=== PATIENT | female | born 1970 | race African-American/Black ===

== ENCOUNTER 2017-05-17 13:53 | Emergency (ER) | payer MEDICAID, OTHER ==
[~2017-05-17] VITALS: Ht 160 cm; Wt 77.3 kg
[2017-05-17] MEDS ORDERED: PERCT10 PO (14:17)
[2017-05-17] MEDS ORDERED: MORP30PC9 PO (14:17)
[2017-05-17] MEDS ORDERED: GABA-531 PO (14:17)
[2017-05-17] MEDS ORDERED: ZOLP5 PO (14:17)
[2017-05-17 15:18] LABS: APPEARANCE,URINE CLOUDY (CLEAR); BILIRUBIN,URINE NEGATIVE (NEGATIVE); GLUCOSE, URINE (UA) NEGATIVE (NEGATIVE); KETONES,URINE NEGATIVE (NEGATIVE); LEUKOCYTE ESTERASE ,URINE NEGATIVE (NEGATIVE); NITRATE,URINE NEGATIVE (NEGATIVE); OCCULT BLOOD,URINE SMALL (NEGATIVE); PROTEIN,URINE NEGATIVE (NEGATIVE); UROBILINOGEN,URINE 0.2 mg/dL (<=1.0)
[2017-05-17 15:36] LABS: BACTERIA,URINE None Seen /HPF (None Seen); WBC,URINE 0-2 /HPF (0-5)
[2017-05-17 15:37] LABS: SQUAMOUS EPITHELIAL CELL,UR Many /LPF (None Seen)
[2017-05-17] MEDS ORDERED: SODIUM CHLORIDE 0.9% 1,000 ML IV ONE ×2 (19:45→20:00)
[2017-05-17] MEDS ORDERED: MORP30 PO (19:55)
[2017-05-17] MEDS ORDERED: KETOROLAC TROMETHAMINE 30 MG/ML VIAL IVP ONE (20:00)
[2017-05-17 20:03] LABS: BASOPHILS # (AUTO) 0.12 K/uL (0.00-0.20); BASOPHILS % (AUTO) 1.5 % (0.0-2.0); EOSINOPHILS # (AUTO) 0.12 K/uL (0.00-0.70); EOSINOPHILS % (AUTO) 1.49 % (1.0-6.0); HEMATOCRIT 41.2 % (36-46); HEMOGLOBIN 13.4 g/dL (12.0-16.0); LYMPHOCYTES # (AUTO) 2.5 K/uL (1.0-4.8); LYMPHOCYTES % (AUTO) 31.7 % (22.0-44.0); MEAN CORPUSCULAR HEMOGLOBIN 31.9 pg (26.0-34.0); MEAN CORPUSCULAR HGB CONC 32.7 G/dL (31.0-37.0); MEAN CORPUSCULAR VOLUME 98 fL (80-100); MONOCYTES # (AUTO) 0.5 K/uL (0.1-1.0); MONOCYTES % (AUTO) 6.6 % (2.0-9.0); NEUTROPHILS # (AUTO) 4.7 K/uL (1.8-7.7); NEUTROPHILS % (AUTO) 58.7 % (40.0-70.0); PLATELET COUNT (AUTO) 270 K/uL (150-450); RED BLOOD CELL COUNT(AUTO) 4.22 MIL/uL (4.00-5.20); RED CELL DISTRIBUTION WIDTH 14.7 % (11.5-14.5)
[2017-05-17 20:38] LABS: ANION GAP 6 mmol/L (8-16); CALCIUM, TOTAL 9.2 mg/dL (8.8-10.5); CARBON DIOXIDE 32 mmol/L (22-29); CHLORIDE 101 mmol/L (98-107); CREATININE 0.98 mg/dL (0.60-1.30); GLOMERULAR FILTR. RATE CALC > 60 mL/min (>60); GLUCOSE,RANDOM 96 mg/dL (70-110); POTASSIUM 3.7 mmol/L (3.5-5.1); SODIUM SERUM 139 mmol/L (136-145); UREA NITROGEN, BLOOD 14 mg/dL (7-18)
[2017-05-17 21:28] VITALS: BP 110/72
== END 2017-05-17 21:33 | disposition home or self-care (01) ==
LOC: EMS 13:57
DX: M54.6 Pain in thoracic spine (principal)
CPT/HCPCS: 36415; 71046; 80048; 81001; 85025; 96361; 96374; 99285; J1885; J7030

== ENCOUNTER 2020-01-02 20:28 | Emergency (ER) | payer OTHER ==
[~2020-01-02] VITALS: Ht 160 cm; Wt 104.5 kg
[~2020-01-02 20:28] MED LIST: GABA-1181 PO; MORP30 PO; OXYC-601 PO; ZOLP-280 PO
[2020-01-02] MEDS ORDERED: ALBU8.5H8 IH (20:41)
[2020-01-02] MEDS ORDERED: BECL10.6 IH (20:41)
[2020-01-02] MEDS ORDERED: KETOROLAC TROMETHAMINE 30 MG/ML VIAL IM ONE (23:15)
[2020-01-02 23:51] VITALS: BP 119/84
== END 2020-01-02 23:52 | disposition home or self-care (01) ==
LOC: EMS 20:28
DX: M65.311 Trigger thumb, right thumb (principal); Z79.899 Other long term (current) drug therapy
CPT/HCPCS: 96372; 99283; J1885

== ENCOUNTER 2020-10-29 16:07 | Emergency (ER) | payer OTHER ==
[~2020-10-29] VITALS: Ht 160 cm; Wt 100.0 kg
[~2020-10-29 16:07] MED LIST changes: +ALBU8.5H8 IH; +BECL10.6 IH
[2020-10-29] MEDS ORDERED: CALC-789 PO (16:22)
[2020-10-29] MEDS ORDERED: DULO-8 PO (16:22)
[2020-10-29] MEDS ORDERED: MULT-1203 PO (16:22)
[2020-10-29] MEDS ORDERED: MELA3TAB89 PO (16:22)
[2020-10-29] MEDS ORDERED: SIME80TA14 PO (16:22)
[2020-10-29] MEDS ORDERED: HYD50 PO (16:22)
[2020-10-29] MEDS ORDERED: CYCL10 PO (16:22)
[2020-10-29] MEDS ORDERED: KETOROLAC TROMETHAMINE 30 MG/ML VIAL IVP ONE (16:30)
[2020-10-29 17:00] LABS: BASOPHILS % (AUTO) 1.1 % (0.0-2.0); EOSINOPHILS % (AUTO) 1.6 % (1.0-6.0); HEMATOCRIT 40.7 % (36-46); HEMOGLOBIN 13.3 g/dL (12.0-16.0); LYMPHOCYTES # (AUTO) 3.4 K/uL (1.0-4.8); LYMPHOCYTES % (AUTO) 41.3 % (22.0-44.0); MEAN CORPUSCULAR HEMOGLOBIN 30.4 pg (26.0-34.0); MEAN CORPUSCULAR HGB CONC 32.7 G/dL (31.0-37.0); MEAN CORPUSCULAR VOLUME 93 fL (80-100); MONOCYTES # (AUTO) 0.5 K/uL (0.1-1.0); MONOCYTES % (AUTO) 6.2 % (2.0-9.0); NEUTROPHILS # (AUTO) 4.1 K/uL (1.8-7.7); NEUTROPHILS % (AUTO) 49.8 % (40.0-70.0); PLATELET COUNT (AUTO) 298 K/uL (150-450); RED BLOOD CELL COUNT(AUTO) 4.38 MIL/uL (4.00-5.20); RED CELL DISTRIBUTION WIDTH 14.6 % (11.5-14.5)
[2020-10-29 17:03] LABS: APPEARANCE,URINE CLEAR (CLEAR); BILIRUBIN,URINE NEGATIVE (NEGATIVE); GLUCOSE, URINE (UA) NEGATIVE (NEGATIVE); KETONES,URINE NEGATIVE (NEGATIVE); LEUKOCYTE ESTERASE ,URINE TRACE (NEGATIVE); NITRATE,URINE NEGATIVE (NEGATIVE); OCCULT BLOOD,URINE NEGATIVE (NEGATIVE); PROTEIN,URINE NEGATIVE (NEGATIVE); UROBILINOGEN,URINE 0.2 mg/dL (<=1.0)
[2020-10-29 17:05] LABS: BACTERIA,URINE Few /HPF (None Seen); RBC,URINE 0-2 /HPF (0-2); SQUAMOUS EPITHELIAL CELL,UR Few /LPF (None Seen)
[2020-10-29 17:09] LABS: AMPHET/METH SCREEN,URINE NEGATIVE (NEGATIVE); BARBITURATE SCREEN, URINE NEGATIVE (NEGATIVE); BENZODIAZEPINES SCREEN,URINE NEGATIVE (NEGATIVE); CANNABINOID SCREEN,URINE NEGATIVE (NEGATIVE); COCAINE SCREEN,URINE NEGATIVE (NEGATIVE); METHADONE SCREEN, URINE NEGATIVE (NEGATIVE); OPIATE SCREEN,URINE POSITIVE (NEGATIVE); PHENCYCLIDINE SCREEN,URINE NEGATIVE (NEGATIVE)
[2020-10-29 17:10] LABS: ANION GAP 9 mmol/L (8-16); CARBON DIOXIDE 27 mmol/L (22-29); CHLORIDE 102 mmol/L (98-107); CREATININE 1.12 mg/dL (0.60-1.30); GLOMERULAR FILTR. RATE CALC > 60 mL/min (>60); GLUCOSE,RANDOM 105 mg/dL (70-110); POTASSIUM 3.5 mmol/L (3.5-5.1); SODIUM SERUM 138 mmol/L (136-145); UREA NITROGEN, BLOOD 21 mg/dL (7-18)
[2020-10-29 17:22] LABS: ALANINE AMINOTRANSFERASE 34 U/L (12-78); ALBUMIN 3.5 g/dL (3.4-5.0); ALKALINE PHOSPHATASE 98 U/L (46-116); ASPARTATE AMINOTRANSFERASE 25 U/L (15-37); BILIRUBIN,TOTAL 0.8 mg/dL (0.1-1.0); HCG,QUANTITATIVE 1 mIU/mL (0-6); LIPASE 81 U/L (73-393); TOTAL PROTEIN, SERUM 7.3 g/dL (6.4-8.2)
[2020-10-29 19:08] VITALS: BP 112/67
== END 2020-10-29 19:40 | disposition home or self-care (01) ==
LOC: EMS 16:07
DX: G62.9 Polyneuropathy, unspecified (principal); J45.909 Unspecified asthma, uncomplicated; Z79.899 Other long term (current) drug therapy; R10.2 Pelvic and perineal pain
CPT/HCPCS: 36415; 71045; 74176; 80053; 80307; 81001; 83690; 84484; 84702; 85025; 93005; 96374; 99285; J1885

== ENCOUNTER 2020-12-31 12:53 | Inpatient (IN) | payer OTHER ==
[~2020-12-31] VITALS: Ht 160 cm; Wt 99.3 kg
[~2020-12-31 12:53] MED LIST changes: +ASPI-1444 PO; +ATOR40TA71 PO; +CALC-789 PO; +CARV12 PO; +CARV6 PO; +CYCL10 PO; +DULO60CA98 PO; +FURO40 PO; +HYD50 PO; +ISOS1TAB2 PO; +MELA3TAB89 PO; +MULT-1203 PO; +OXYC-490 PO; -OXYC-601 PO; +SIME80TA14 PO
[2020-12-31 13:28] LABS: BASOPHILS % (AUTO) 0.7 % (0.0-2.0); EOSINOPHILS % (AUTO) 0.9 % (1.0-6.0); HEMATOCRIT 38.3 % (36-46); HEMOGLOBIN 12.2 g/dL (12.0-16.0); LYMPHOCYTES # (AUTO) 2.2 K/uL (1.0-4.8); LYMPHOCYTES % (AUTO) 28.5 % (22.0-44.0); MEAN CORPUSCULAR HEMOGLOBIN 28.8 pg (26.0-34.0); MEAN CORPUSCULAR HGB CONC 31.8 G/dL (31.0-37.0); MEAN CORPUSCULAR VOLUME 91 fL (80-100); MONOCYTES # (AUTO) 0.4 K/uL (0.1-1.0); MONOCYTES % (AUTO) 5.5 % (2.0-9.0); NEUTROPHILS % (AUTO) 64.4 % (40.0-70.0); PLATELET COUNT (AUTO) 356 K/uL (150-450); RED BLOOD CELL COUNT(AUTO) 4.23 MIL/uL (4.00-5.20); RED CELL DISTRIBUTION WIDTH 15.4 % (11.5-14.5)
[2020-12-31 13:38] LABS: CALCIUM, TOTAL 8.6 mg/dL (8.8-10.5); CREATININE 1.24 mg/dL (0.60-1.30); POTASSIUM 3.9 mmol/L (3.5-5.1)
[2020-12-31 13:43] LABS: INR 1.2 (0.9-1.1); PROTHROMBIN TIME 12.9 SEC (9.4-11.6)
[2020-12-31 13:45] LABS: LACTIC ACID 1.9 mmol/L (0.4-2.0)
[2020-12-31] MEDS ORDERED: SODIUM CHLORIDE 0.9% 100 ML ONE (13:51)
[2020-12-31] MEDS ORDERED: IOHEXOL 350 MG/ML 100 ML VIAL ONE (13:51)
[2020-12-31 14:05] LABS: ALBUMIN 2.9 g/dL (3.4-5.0); MAGNESIUM 1.8 mg/dL (1.80-2.40); TOTAL PROTEIN, SERUM 7.4 g/dL (6.4-8.2)
[2020-12-31] MEDS ORDERED: HEPARIN SODIUM,PORCINE 5,000 UNITS/ML VIAL IVP ONE (15:15)
[2020-12-31] MEDS ORDERED: HEPARIN SODIUM,PORCINE 5,000 UNITS/ML VIAL IVP PRN ×2 (15:15)
[2020-12-31] MEDS ORDERED: HEPARIN SODIUM 25000 UNITS/D5W 250 ML IV PRN (15:15)
[2020-12-31 16:10] LABS: BASOPHILS % (AUTO) 0.8 % (0.0-2.0); EOSINOPHILS % (AUTO) 0.6 % (1.0-6.0); HEMATOCRIT 35.8 % (36-46); HEMOGLOBIN 11.4 g/dL (12.0-16.0); LYMPHOCYTES # (AUTO) 2.2 K/uL (1.0-4.8); LYMPHOCYTES % (AUTO) 29.5 % (22.0-44.0); MEAN CORPUSCULAR HEMOGLOBIN 28.9 pg (26.0-34.0); MEAN CORPUSCULAR HGB CONC 31.8 G/dL (31.0-37.0); MEAN CORPUSCULAR VOLUME 91 fL (80-100); MONOCYTES # (AUTO) 0.6 K/uL (0.1-1.0); MONOCYTES % (AUTO) 7.8 % (2.0-9.0); NEUTROPHILS # (AUTO) 4.5 K/uL (1.8-7.7); NEUTROPHILS % (AUTO) 61.3 % (40.0-70.0); PLATELET COUNT (AUTO) 331 K/uL (150-450); RED BLOOD CELL COUNT(AUTO) 3.94 MIL/uL (4.00-5.20); RED CELL DISTRIBUTION WIDTH 15.6 % (11.5-14.5)
[2020-12-31] MEDS ORDERED: ACETAMINOPHEN 325 MG TABLET PO PRN (16:15)
[2020-12-31] MEDS ORDERED: ALBUTEROL SULFATE 2.5 MG/0.5 ML NEB SOLUTION NEB PRN (16:15)
[2020-12-31 19:52] LABS: COVID AG,FIA SOURCE NASOPHARYNGEAL
[2020-12-31] MEDS: DOCUSATE SODIUM 100 MG CAPSULE PO SCH (19:59)
[2020-12-31] MEDS ORDERED: MORPHINE SULFATE 4 MG/ML SYRINGE IVP ONE (20:00)
[2020-12-31 21:55] VITALS: BP 108/75
[2021-01-01 00:18] VITALS: BP 101/71
[2021-01-01] MEDS: MORPHINE SULFATE 2 MG/ML SYRINGE IVP PRN ×2 (05:25→14:23)
[2021-01-01 05:30] VITALS: BP 127/84
[2021-01-01] MEDS ORDERED: HEPARIN SODIUM 25000 UNITS/D5W 250 ML IV PRN (05:45)
[2021-01-01] MEDS ORDERED: HEPARIN SODIUM,PORCINE 5,000 UNITS/ML VIAL IVP PRN ×2 (05:45)
[2021-01-01 07:15] LABS: BASOPHILS % (AUTO) 0.7 % (0.0-2.0); EOSINOPHILS % (AUTO) 1.3 % (1.0-6.0); HEMATOCRIT 38.1 % (36-46); HEMOGLOBIN 12.1 g/dL (12.0-16.0); LYMPHOCYTES # (AUTO) 3.2 K/uL (1.0-4.8); LYMPHOCYTES % (AUTO) 45.9 % (22.0-44.0); MEAN CORPUSCULAR HGB CONC 31.7 G/dL (31.0-37.0); MEAN CORPUSCULAR VOLUME 91 fL (80-100); MONOCYTES # (AUTO) 0.6 K/uL (0.1-1.0); MONOCYTES % (AUTO) 8.5 % (2.0-9.0); NEUTROPHILS # (AUTO) 3.1 K/uL (1.8-7.7); NEUTROPHILS % (AUTO) 43.6 % (40.0-70.0); PLATELET COUNT (AUTO) 337 K/uL (150-450); RED BLOOD CELL COUNT(AUTO) 4.16 MIL/uL (4.00-5.20); RED CELL DISTRIBUTION WIDTH 15.9 % (11.5-14.5)
[2021-01-01 07:30] VITALS: BP 93/71
[2021-01-01] MEDS: FAMOTIDINE 20 MG TABLET PO SCH (07:51)
[2021-01-01] MEDS: APIXABAN 5 MG TABLET PO SCH ×2 (07:51→20:29)
[2021-01-01] MEDS: DOCUSATE SODIUM 100 MG CAPSULE PO SCH ×2 (07:52→20:28)
[2021-01-01] MEDS ORDERED: FUROSEMIDE 40 MG/4 ML VIAL IVP SCH (09:00)
[2021-01-01 11:14] VITALS: BP 106/72
[2021-01-01 15:02] VITALS: BP 102/75
[2021-01-01 20:10] VITALS: BP 107/69
[2021-01-02 00:09] VITALS: BP 106/76
[2021-01-02 04:34] VITALS: BP 101/69
[2021-01-02] MEDS: MORPHINE SULFATE 2 MG/ML SYRINGE IVP PRN ×2 (08:01→21:53)
[2021-01-02] MEDS ORDERED: FUROSEMIDE 40 MG/4 ML VIAL IVP SCH (09:00)
[2021-01-02] MEDS ORDERED: CARVEDILOL 3.125 MG TABLET PO SCH (09:00)
[2021-01-02] MEDS: APIXABAN 5 MG TABLET PO SCH ×2 (09:05→20:25)
[2021-01-02] MEDS: FAMOTIDINE 20 MG TABLET PO SCH (09:06)
[2021-01-02] MEDS: FUROSEMIDE 40 MG/4 ML VIAL IVP SCH (09:06)
[2021-01-02] MEDS: DOCUSATE SODIUM 100 MG CAPSULE PO SCH ×2 (09:06→20:25)
[2021-01-02 09:07] VITALS: BP 108/72
[2021-01-02 11:47] VITALS: BP 95/68
[2021-01-02] MEDS: ALBUTEROL SULFATE 2.5 MG/0.5 ML NEB SOLUTION NEB SCH ×4 (11:55→23:37)
[2021-01-02] MEDS: IPRATROPIUM BROMIDE 0.5 MG/2.5 ML NEB SOLUTION NEB SCH ×4 (11:55→23:37)
[2021-01-02 15:40] LABS: ANION GAP 11 mmol/L (8-16); CALCIUM, TOTAL 9.1 mg/dL (8.8-10.5); CARBON DIOXIDE 24 mmol/L (22-29); CHLORIDE 101 mmol/L (98-107); CREATININE 1.03 mg/dL (0.60-1.30); GLOMERULAR FILTR. RATE CALC > 60 mL/min (>60); GLUCOSE,RANDOM 136 mg/dL (70-110); POTASSIUM 3.4 mmol/L (3.5-5.1); SODIUM SERUM 136 mmol/L (136-145); UREA NITROGEN, BLOOD 11 mg/dL (7-18)
[2021-01-02 15:46] VITALS: BP 101/73
[2021-01-02] MEDS ORDERED: POTASSIUM CHLORIDE 20 MEQ ER TABLET PO ONE (16:15)
[2021-01-02] MEDS: CARVEDILOL 3.125 MG TABLET PO SCH (20:25)
[2021-01-02 20:30] VITALS: BP 125/105
[2021-01-02] MEDS ORDERED: ONDANSETRON HCL 4 MG/2 ML VIAL IVP PRN (23:45)
[2021-01-03] MEDS: ALBUTEROL SULFATE 2.5 MG/0.5 ML NEB SOLUTION NEB SCH ×6 (03:00→23:00)
[2021-01-03] MEDS: IPRATROPIUM BROMIDE 0.5 MG/2.5 ML NEB SOLUTION NEB SCH ×6 (03:00→23:00)
[2021-01-03 05:08] VITALS: BP 105/52
[2021-01-03] MEDS: CARVEDILOL 3.125 MG TABLET PO SCH (08:49)
[2021-01-03] MEDS: FAMOTIDINE 20 MG TABLET PO SCH (08:49)
[2021-01-03] MEDS: APIXABAN 5 MG TABLET PO SCH ×2 (08:49→20:39)
[2021-01-03] MEDS: DOCUSATE SODIUM 100 MG CAPSULE PO SCH ×2 (08:49→20:39)
[2021-01-03] MEDS: FUROSEMIDE 40 MG/4 ML VIAL IVP SCH (09:00)
[2021-01-03 11:08] VITALS: BP 93/46
[2021-01-03] MEDS: HYDROCODONE/ACETAMINOPHEN 5-325 MG TABLET PO PRN ×2 (11:08→20:47)
[2021-01-03] MEDS: LORazepam 0.5 MG TABLET PO PRN (15:11)
[2021-01-03] MEDS: FUROSEMIDE 40 MG TABLET PO SCH (15:11)
[2021-01-03 15:45] VITALS: BP 107/81
[2021-01-03 20:30] VITALS: BP 152/93
[2021-01-03] MEDS: CARVEDILOL 12.5 MG TABLET PO SCH (20:39)
[2021-01-04] VITALS (7 sets, daily range): BP systolic 60–141; BP diastolic 24–105
[2021-01-04] MEDS: IPRATROPIUM BROMIDE 0.5 MG/2.5 ML NEB SOLUTION NEB SCH ×6 (03:00→23:00)
[2021-01-04] MEDS: ALBUTEROL SULFATE 2.5 MG/0.5 ML NEB SOLUTION NEB SCH ×6 (03:00→23:00)
[2021-01-04] MEDS: FUROSEMIDE 40 MG TABLET PO SCH (09:11)
[2021-01-04] MEDS: FAMOTIDINE 20 MG TABLET PO SCH (09:12)
[2021-01-04] MEDS: LORazepam 0.5 MG TABLET PO PRN (09:12)
[2021-01-04] MEDS: APIXABAN 5 MG TABLET PO SCH ×2 (09:12→19:49)
[2021-01-04] MEDS: DOCUSATE SODIUM 100 MG CAPSULE PO SCH ×3 (09:12→19:53)
[2021-01-04] MEDS: HYDROCODONE/ACETAMINOPHEN 5-325 MG TABLET PO PRN (11:59)
[2021-01-04] MEDS: CARVEDILOL 12.5 MG TABLET PO SCH ×2 (11:59→19:49)
[2021-01-05 00:11] VITALS: BP 101/73
[2021-01-05] MEDS: ALBUTEROL SULFATE 2.5 MG/0.5 ML NEB SOLUTION NEB SCH ×4 (03:00→15:36)
[2021-01-05] MEDS: IPRATROPIUM BROMIDE 0.5 MG/2.5 ML NEB SOLUTION NEB SCH ×4 (03:00→15:36)
[2021-01-05 04:52] VITALS: BP 90/57
[2021-01-05] MEDS: HYDROCODONE/ACETAMINOPHEN 5-325 MG TABLET PO PRN (05:56)
[2021-01-05 08:25] VITALS: BP 90/68
[2021-01-05] MEDS: DOCUSATE SODIUM 100 MG CAPSULE PO SCH (08:27)
[2021-01-05] MEDS: FAMOTIDINE 20 MG TABLET PO SCH (08:27)
[2021-01-05] MEDS: APIXABAN 5 MG TABLET PO SCH (08:27)
[2021-01-05] MEDS: CARVEDILOL 12.5 MG TABLET PO SCH (09:00)
[2021-01-05] MEDS: FUROSEMIDE 40 MG TABLET PO SCH (09:00)
[2021-01-05] MEDS ORDERED: APIX5TAB PO (11:02)
[2021-01-08] MEDS ORDERED: APIXABAN 5 MG TABLET PO SCH (09:00)
== END 2021-01-05 18:50 | disposition home or self-care (01) | DRG 134 ==
LOC: EMS 12:56 → 5S 20:00
PROVIDERS: ADMIT Internal Medicine; ATTEND Internal Medicine
DX: I26.99 Other pulmonary embolism without acute cor pulmonale (principal); J96.91 Respiratory failure, unspecified with hypoxia; I50.41 Acute combined systolic (congestive) and diastolic (congestive) heart failure; I42.8 Other cardiomyopathies; I11.0 Hypertensive heart disease with heart failure; I25.10 Atherosclerotic heart disease of native coronary artery without angina pectoris; G89.4 Chronic pain syndrome; I25.2 Old myocardial infarction; J44.9 Chronic obstructive pulmonary disease, unspecified; Z96.649 Presence of unspecified artificial hip joint; Z20.822 Contact with and (suspected) exposure to COVID-19; I07.1 Rheumatic tricuspid insufficiency; E66.9 Obesity, unspecified; Z68.28 Body mass index [BMI] 28.0-28.9, adult
CPT/HCPCS: 71045; 71046; 71275; 80048; 80053; 82550; 83605; 83690; 83735; 83880; 84484; 84702; 85025; 85610; 85730; 87081; 93005; 94640; 99285; G0238; J1644; J1940; J2270; J2405; J7050; Q9967; 36415-L1; 36415-TC; J7613

== ENCOUNTER 2023-05-04 14:26 | Emergency (ER) | payer OTHER ==
[~2023-05-04] VITALS: Ht 160 cm; Wt 72.7 kg
[~2023-05-04 14:26] MED LIST changes: +APIX5TAB PO; -ASPI-1444 PO; -CYCL10 PO; -DULO60CA98 PO; -GABA-1181 PO; -HYD50 PO; -ISOS1TAB2 PO; -MELA3TAB89 PO; -MORP30 PO; -MULT-1203 PO; -OXYC-490 PO; -SIME80TA14 PO; -ZOLP-280 PO
[2023-05-04 14:29] VITALS: TEMP 98
[2023-05-04] MEDS ORDERED: FLUO20CA36 PO (14:35)
[2023-05-04] MEDS ORDERED: DAPA10TA PO (14:35)
[2023-05-04] MEDS ORDERED: POTA-203 PO (14:35)
[2023-05-04] MEDS ORDERED: BUME2TAB5 PO (14:35)
[2023-05-04] MEDS ORDERED: SPIR50TA27 PO (14:35)
[2023-05-04] MEDS ORDERED: RIVA20TA PO (14:35)
[2023-05-04] MEDS ORDERED: GABA600T10 PO (14:35)
[2023-05-04] MEDS ORDERED: METO-416 PO (14:35)
[2023-05-04] MEDS ORDERED: ATOR-2 PO (14:35)
[2023-05-04] MEDS ORDERED: SACU1TAB PO (14:35)
[2023-05-04] MEDS ORDERED: ASPI-1444 PO (14:36)
[2023-05-04] MEDS ORDERED: OxyCODONE HCL/ACETAMINOPHEN 5-325 MG TABLET PO ONE (17:45)
[2023-05-04] MEDS ORDERED: PERCT PO (17:53)
[2023-05-04 18:00] VITALS: BP 118/70; PULSE 76; RESP 18
[2023-05-05] MEDS ORDERED: PERCT PO (14:13)
== END 2023-05-04 18:02 | disposition home or self-care (01) ==
LOC: EMS 14:26
DX: M25.551 Pain in right hip (principal); G89.29 Other chronic pain; J45.909 Unspecified asthma, uncomplicated; Z87.891 Personal history of nicotine dependence; Z96.649 Presence of unspecified artificial hip joint; Z98.890 Other specified postprocedural states
CPT/HCPCS: 99283